=== PATIENT | female | born 1985 | race Caucasian/White ===

== ENCOUNTER 2023-02-14 13:53 | Outpatient (CLI) | payer OTHER, SELFPAY | END 2023-02-14 13:54 | disposition home or self-care (01) | PROVIDERS: Visit Provider Physician Assistant | DX: Z01.419 Encounter for gynecological examination (general) (routine) without abnormal findings (principal); R23.2 Flushing; R35.1 Nocturia | CPT/HCPCS: 83001; 84443 ==

== ENCOUNTER 2024-08-25 13:25 | Emergency (ER) | payer OTHER, SELFPAY ==
[2024-08-25 13:45] VITALS: BP 122/75; PULSE 77; RESP 18; TEMP 36.7; O2SAT 97; BMI 21.5
--- NOTE | 2024-08-25 14:32 | ED_ITS ---
HPI - General Adult General Chief complaint: Headache/Migraine Stated complaint: Migraine since Tuesday Time Seen by Provider: 08/25/24 13:52 Source: patient Mode of arrival: ambulatory Limitations: no limitations History of Present Illness HPI narrative: 39-year-old female presenting today with headache and dizziness. Patient has been dealing with this for approximately 6 days. She was seen in the [facility] on 08/21. Head CT, head neck CTA was done without abnormalities noted. She was treated with meclizine, Zofran with some relief. However, dizziness and headache returned, headache progressively got worse until she was seen in the same ED yesterday morning. At that time she was treated with Benadryl, Reglan, Toradol and a L of normal saline. She states that she felt slightly better with treatment. She did okay during the day yesterday however at night her symptoms return including worsening frontal headache. The headache initially started in the back of the head at the beginning of the week and now is in the front of the head. She describes her dizziness as the room swaying back and forth. If she is lying in bed quietly she does not feel dizzy. She notices it when she is trying to go from a sitting to a standing position. She denies any recent head trauma. She denies any personal history of dizziness or blood clots in the past. No family history of stroke. Patient denies recent alcohol use, denies tobacco use. She has not been having any fevers or vomiting until today when she vomited once. She denies any changes in her vision or hearing. No recent travel. Patient denies any focal neurologic deficits or speech changes. No changes in facial symmetry per patient or her . No confusion. She denies any chest pain or palpitations. She is not short of breath. Of note, patient states that she took Sudafed yesterday and this did help her symptoms quite a bit temporarily. Related Data Previous Rx's ?Medication ?Instructions ?Recorded escitalopram oxalate 10 mg tablet 15 mg (1.5 x 10 mg) PO QDAY #135 05/05/23 (Lexapro) tabs ketorolac 10 mg tablet 10 mg PO TID 5 days #15 tabs 08/25/24 Allergies Allergy/AdvReac Type Severity Reaction Status Date / Time No Known Drug Allergies Allergy Verified 08/25/24 13:45 Review of Systems Status of ROS: Reports: 10 or more systems reviewed and unremarkable except as noted in History and below [facility] Medical History Abnormal Pap smear of cervix ?R87.619 - Unspecified abnormal cytological findings in specimens from cervix uteri (ICD-10) Surgical History S/P LEEP (loop electrosurgical excision procedure) ?Z98.890 - Other specified postprocedural states (ICD-10) History of tubal ligation ?Z98.51 - Tubal ligation status (ICD-10) History of 2 sections ?Z98.891 - History of uterine scar from previous surgery (ICD-10) Family History Unknown Breast cancer Coronary artery disease Thyroid disease High cholesterol FHx: mental illness Social History Narrative: Lives with , 3 kids Non-smoker No regular exercise Social EtOH use Smoking Status: Never smoker Do you use any of these nicotine containing products: None How often do you have a drink containing alcohol: monthly or less AUDIT-C Alcohol total score: 1 Non-prescribed substance use: denies use service: No Exam Narrative: Exam Narrative: Well-nourished well-developed patient in no acute distress. Alert and oriented. Answers questions appropriately. Mood and affect are appropriate. Thoughts are goal oriented and rational. No tangential or magical thinking noted. Patient speaks in full sentences without needing to catch her breath. Patient closed her eyes most of the time, moans off and on. She asks her to do a lot of the talking for her. HEENT: Normocephalic atraumatic. Pupils are equally round reactive to light. Extraocular muscles are intact. Conjunctivae are moist without any icterus noted. Moist mucous membranes. Posterior pharynx is normal. Neck is soft without any lymphadenopathy or thyromegaly. No masses are appreciated. I cannot reproduce her pain with palpation of the head or neck. She has no tenderness to palpation of the cervical spine. TMs are clear bilaterally. Cardiovascular: Heart is regular rate and rhythm S1 and S2 are present without any murmurs. Lungs: Clear to auscultation bilaterally no wheezes rhonchi or rales are appreciated. Patient takes deep breaths without any discomfort. Abdomen: Soft and nontender nondistended with normal bowel sounds. No guarding or rebound. No masses or organomegaly appreciated. Extremities: Bilateral lower extremities are without edema. Normal DP and PT pulses. Skin: Well perfused without any obvious rashes. Strength is 5/5 of the upper and lower extremities however, patient's neurological exam is inconsistent secondary to the patient displaying poor effort. Reflexes are 2+ and symmetric at the knees. Cranial nerves 3-12 are normal. [id number]-dy-[id number] is normal. Aiyo-ju-wuqa is normal. There is no nystagmus either horizontally or vertically. Hints exam is unremarkable. Const: Vital Signs, click to edit/add: Vital Signs - 24 hr 08/25/24 13:45 Temperature 98.1 F Pulse Rate [Pulse Oximeter] 77 Respiratory Rate 18 Blood Pressure [Ri ght Upper Arm] 122/75 Pulse Oximetry 97 Oxygen Delivery Me thod Room Air Course Course ED Course: I look through patient's ED notes from the and the . Head CT, head neck CTA done and unremarkable at that time. Triple swab was done the of this was unremarkable also. EKG, read by me, shows normal sinus rhythm with a pulse of 70. Today we did repeat blood work: CBC was normal. Normal lactate. Negative mono. Normal chemistries. Normal LFTs. Normal CRP. Normal TSH. A triple swab negative. The patient received normal saline, Toradol, Zofran, Benadryl a and dexamethasone. She felt much better after treatment. Vital Signs Vital signs: Initial Vital Signs Temperature 98.1 F 08/25/24 13:45 Temperature Source Temporal Artery Scan 08/25/24 13:45 Pulse Rate 77 08/25/24 13:45 Respiratory Rate 18 08/25/24 13:45 Blood Pressure 122/75 08/25/24 13:45 Blood Pressure Mean 90 08/25/24 13:45 Pulse Oximetry 97 08/25/24 13:45 Oxygen Delivery Method Room Air 08/25/24 13:45 Vital Signs Temperature 98.1 F 08/25/24 13:45 Pulse Rate 77 08/25/24 13:45 Respiratory Rate 18 08/25/24 13:45 Blood Pressure 122/75 08/25/24 13:45 Pulse Oximetry 97 08/25/24 13:45 Oxygen Delivery Method Room Air 08/25/24 13:45 Temperature 98.1 F 08/25/24 13:45 Pulse Rate 77 08/25/24 13:45 Respiratory Rate 18 08/25/24 13:45 Blood Pressure 122/75 08/25/24 13:45 Pulse Oximetry 97 08/25/24 13:45 Oxygen Delivery Method Room Air 08/25/24 13:45 Medications Administered Medications: Discontinued Medications Generic Name Dose Route Start Last Admin Trade Name Freq PRN Reason Stop Dose Admin Dexamethasone 8 mg 08/25/24 14:01 08/25/24 14:35 Dexamethasone 4 Mg/Ml Vial IV 08/25/24 14:02 8 mg ONCE ONE Administration Diphenhydramine HCl 25 mg 08/25/24 14:01 08/25/24 14:40 Diphenhydramine 50 Mg/Ml Inj IVP 08/25/24 14:02 25 mg ONCE ONE Administration Sodium Chloride 500 mls @ 500 mls/hr 08/25/24 14:01 08/25/24 14:44 0.9 % Sodium Chloride 500 Ml IV 08/25/24 15:00 500 mls/hr .Q1H ONE Administration Ketorolac Tromethamine 30 mg 08/25/24 14:01 08/25/24 14:43 Ketorolac 30 Mg/Ml Inj IVP 08/25/24 14:02 30 mg ONCE ONE Administration Lorazepam 0.5 mg 08/25/24 14:01 08/25/24 14:38 Lorazepam 2 Mg/Ml Inj IVP 08/25/24 14:02 0.5 mg ONCE ONE Administration Ondansetron HCl 4 mg 08/25/24 14:01 08/25/24 14:53 Ondansetron 2 Mg/Ml Inj IVP 08/25/24 14:02 4 mg ONCE ONE Administration Medical Decision Making MDM Narrative Medical decision making narrative: 39-year-old female with headache, dizziness. Question a viral labyrinthitis or vestibular neuritis causing her symptoms. Other differentials include migraine headache, benign positional vertigo. We will send the patient home with Toradol for headache, recommend taking Benadryl prn. Increase fluid intake. Follow-up with PCP this coming week. Lab Data Lab results reviewed: Yes I reviewed the patient's lab results Labs: Lab Results 08/25/24 Range/Units 14:30 WBC 5.00 (4.50-11.00) K/uL RBC 4.79 (4.00-5.20) m/uL Hgb 13.3 (12.0-16.0) gm/dL Hct 40.4 (33.0-51.0) % MCV 84 (80-100) fL MCH 28 (26-34) pg MCHC 33 (32-36) gm/dL RDW Coeff of Kristen 12.5 (11.5-15.5) % Plt Count 267 (140-440) K/uL Neut % (Auto) 68.0 (42.0-72.0) % Lymph % (Auto) 22.2 (20-44) % [place] % (Auto) 7.6 (0.0-11.0) % Eos % (Auto) 1.2 (0.0-7.0) % Baso % (Auto) 0.4 (0.0-3.0) % Neut # (Auto) 3.40 (1.7-7.0) K/uL Lymph # (Auto) 1.11 (0.90-2.90) K/uL [place] # (Auto) 0.40 (0.00-0.90) K/UL Eos # (Auto) 0.06 (0.00-0.50) K/uL Baso # (Auto) 0.02 (0.00-0.30) K/uL Abs Immat Gran (auto) 0.03 (0.00-0.30) K/uL Imm/Tot Granulo (auto) 0.6 % Sodium 136 (135-149) mmol/L Potassium 3.7 (3.6-5.1) mmol/L Chloride 106 (96-114) mmol/L Carbon Dioxide 23 (20-32) mmol/L Anion Gap 7 (7-15) mEq/L BUN 10 (5-24) mg/dL Creatinine 0.7 (0.5-1.5) mg/dL Estimated Creat Clear 81.42 Estimated GFR 113 ml/min Glucose 96 (60-115) mg/dL Lactate 1.2 (0.5-1.9) mmol/L Calcium 9.2 (8.4-10.6) mg/dL Magnesium 2.3 (1.5-2.6) mg/dL Total Bilirubin 0.7 (0.1-1.5) mg/dL Direct Bilirubin 0.2 (0.0-0.5) mg/dL AST 33 (12-35) U/L ALT 34 (4-35) U/L Alkaline Phosphatase 83 (40-150) U/L Troponin I < 0.01 L (0.01-0.04) ng/mL C-Reactive Protein < 0.5 L (0.5-1.0) mg/dL Total Protein 7.3 (6.0-8.3) g/dL Albumin 4.4 (3.3-5.0) g/dL TSH 1.460 (0.270-4.20) uIU/mL Monoscreen Negative (Negative) ECG Data Attestation: I personally reviewed and interpreted this ECG as follows: Discharge Plan Discharge Clinical Impression: Headache, Vertigo Patient Disposition: Home, Self-Care Condition: Stable Additional Instructions: Take Toradol as needed for headache. Always take with food. Can take Benadryl in the evenings to help with sleep. Increase her daily fluid intake. Rest as much as possible. Follow-up with your primary care provider this coming week. Prescriptions: New ketorolac 10 mg tablet 10 mg PO TID 5 Days Qty: 15 0RF No Action escitalopram oxalate [Lexapro] 10 mg tablet 15 mg PO QDAY Qty: 135 0RF Follow Up/Referrals: Provider,Not a Local [Primary Care Provider] - Stand Alone Forms: [place] Info Instructions
[2024-08-25] MEDS: dexAMETHasone 4 MG/ML VIAL 8 MG IV (14:35)
[2024-08-25 14:37] LABS: Lactate* 1.2 mmol/L (0.5-1.9)
[2024-08-25] MEDS: LORazepam 2 MG/ML inj 0.5 MG IVP (14:38)
[2024-08-25 14:39] LABS: Basophils Absolute Auto 0.02 K/uL (0.00-0.30); Basophils Percent Auto 0.4 % (0.0-3.0); Eosinophils Absolute Auto 0.06 K/uL (0.00-0.50); Eosinophils Percent Auto 1.2 % (0.0-7.0); Hematocrit 40.4 % (33.0-51.0); Hemoglobin* 13.3 gm/dL (12.0-16.0); Immature Granulocytes Abs Auto 0.03 K/uL (0.00-0.30); Immature Granulocytes Pct Auto 0.6 %; Lymphocytes Absolute Auto 1.11 K/uL (0.90-2.90); Lymphocytes Percent Auto 22.2 % (20-44); Mean Corpuscular HGB Conc 33 gm/dL (32-36); Mean Corpuscular Hemoglobin 28 pg (26-34); Mean Corpuscular Volume 84 fL (80-100); Monocytes Percent Auto 7.6 % (0.0-11.0); Platelet Count* 267 K/uL (140-440); RDW Coefficient of Variation % 12.5 % (11.5-15.5); Red Blood Count 4.79 m/uL (4.00-5.20)
[2024-08-25] MEDS: diphenhydrAMINE 50 MG/ML inj 25 MG IVP (14:40)
[2024-08-25 14:41] LABS: Slide Review Reflex No
[2024-08-25] MEDS: KETOROLAC 30 MG/ML inj IVP (14:43)
[2024-08-25] MEDS: 0.9 % SODIUM CHLORIDE 500 ML 500 ML IV (14:44)
[2024-08-25 14:50] LABS: Mono Screen* Negative (Negative)
[2024-08-25] MEDS: ONDANSETRON 2 MG/ML inj 4 MG IVP (14:53)
[2024-08-25 14:58] LABS: Albumin* 4.4 g/dL (3.3-5.0); Chloride* 106 mmol/L (96-114)
[2024-08-25 14:59] LABS: Potassium* 3.7 mmol/L (3.6-5.1); Sodium* 136 mmol/L (135-149)
[2024-08-25 15:01] LABS: Alanine Aminotransferase* 34 U/L (4-35); Alkaline Phosphatase* 83 U/L (40-150); Anion Gap 7 mEq/L (7-15); Aspartate Amino Transferase* 33 U/L (12-35); Bilirubin Direct* 0.2 mg/dL (0.0-0.5); Bilirubin Total* 0.7 mg/dL (0.1-1.5); Blood Urea Nitrogen* 10 mg/dL (5-24); Carbon Dioxide* 23 mmol/L (20-32); Creatinine* 0.7 mg/dL (0.5-1.5); Est. Creatinine Clearance* 81.42; Estimated Glomerular Filt Rate 113 ml/min; Glucose* 96 mg/dL (60-115); Total Protein* 7.3 g/dL (6.0-8.3)
[2024-08-25 15:02] LABS: Calcium* 9.2 mg/dL (8.4-10.6); Magnesium* 2.3 mg/dL (1.5-2.6)
[2024-08-25 15:08] LABS: C Reactive Protein* < 0.5 mg/dL (0.5-1.0)
[2024-08-25 15:20] LABS: Troponin I* < 0.01 ng/mL (0.01-0.04)
[2024-08-25 15:52] LABS: PCR FLU A Negative PCR FLU A (Negative); PCR FLU B Negative PCR FLU B (Negative); PCR RSV Negative PCR RSV (Negative); SARS PCR* Negative SARS-CoV-2 (Negative)
[2024-08-25 16:17] VITALS: BP 107/60; PULSE 96; RESP 14
[2024-08-25 18:23] LABS: Ur HCG Qualitative* Negative (Negative)
== END 2024-08-25 16:18 | disposition home or self-care (01) ==
PROVIDERS: Emergency Provider Family Medicine
DX: R51.9 Headache, unspecified (principal); R42 Dizziness and giddiness
CPT/HCPCS: 36415; 80048; 80076; 81025; 83605; 83735; 84443; 84484; 85025; 86140; 86308; 87631; 93005; 96374; 96375; 99284; J1100; J1200; J1885; J2060; J2405; J7030